=== PATIENT | male | born 1975 | race Two or more races ===

== ENCOUNTER 2023-03-18 20:47 | Emergency (ER) | payer MEDICAID ==
[~2023-03-18] VITALS: Ht 165.1 cm; Wt 72.0 kg
[~2023-03-18 20:47] MED LIST: NO HOME MEDS
[2023-03-18 20:56] VITALS: BP 106/61; PULSE 59; RESP 16; TEMP 97.7; O2SAT 97
[2023-03-18] MEDS ORDERED: IBUP-1984 PO ×2 (21:51→21:53)
== END 2023-03-18 22:13 | disposition home or self-care (01) ==
LOC: ER 20:47
DX: S90.01XA Contusion of right ankle, initial encounter (principal); F41.9 Anxiety disorder, unspecified; Z72.89 Other problems related to lifestyle; Z79.899 Other long term (current) drug therapy; V00.131A Fall from skateboard, initial encounter; Y93.51 Activity, roller skating (inline) and skateboarding; Y92.89 Other specified places as the place of occurrence of the external cause; Y99.8 Other external cause status
CPT/HCPCS: 73610; 99283; A6449

== ENCOUNTER 2024-01-14 19:26 | Emergency (ER) | payer MEDICAID ==
[~2024-01-14] VITALS: Ht 167.6 cm; Wt 76.0 kg
[2024-01-14] MEDS ORDERED: sulfamethoxazole/trimethoprim SS (400mg/80mg) tab (single-strength) PO SCH (20:30)
[2024-01-14] MEDS ORDERED: CEPH-585 PO (20:32)
[2024-01-14] MEDS ORDERED: SULF1TAB49 PO (20:32)
[2024-01-14] MEDS: cephalexin 250mg capsule PO ONE (20:56)
[2024-01-14] MEDS: sulfamethoxazole/trimethoprim DS (800/160mg) tablet PO SCH (20:57)
[2024-01-14 21:03] VITALS: BP 122/78; PULSE 80; RESP 16; TEMP 98.6; O2SAT 98
== END 2024-01-14 21:05 | disposition home or self-care (01) ==
LOC: ER 19:26
DX: H00.011 Hordeolum externum right upper eyelid (principal)
CPT/HCPCS: 99283